=== PATIENT | male | born 1960 | race Caucasian/White ===

== ENCOUNTER 2021-05-09 18:05 | Emergency (ER) | payer OTHER ==
[2021-05-09 20:19] LABS: ALBUMIN 3.8 g/dL (3.4-5.0); BASOPHIL 0.5 % (0-2); BILIRUBIN - TOTAL 0.3 mg/dL (0.2-1.0); BUN/CREAT RATIO (CALC) 18.4 RATIO; CREATININE 1.25 mg/dL (0.67-1.17); EOSINOPHIL 0.4 % (0-5); GLOBULIN (CALCULATION) 3.8 g/dL; HCT 41.4 % (42.0-52.0); HGB 14.3 g/dl (13.2-18.0); LYMPHOCYTE 10.6 % (15-48); MCH 30.8 pg (25.0-31.0); MCHC 34.5 g/dL (32.0-36.0); MCV 89.2 fL (78.0-100.0); MONOCYTE 6.5 % (0-12); MPV 10.1 fL (6.0-9.5); NEUTROPHIL 81.6 % (41-80); NRBC 0; PLT 256 K/uL (150-400); POTASSIUM 4.7 mmol/L (3.5-5.1); RBC 4.64 M/uL (4.70-6.00); RDW 13.2 % (11.5-14.0); TOTAL PROTEIN 7.6 g/dL (6.4-8.2); WBC 8.3 K/uL (4.0-10.5)
[2021-05-09 20:37] LABS: CKMB 2.3 ng/mL (0.0-3.6)
== END 2021-05-09 21:47 | disposition home or self-care (01) ==
LOC: FER 18:05
PROVIDERS: Emergency Medicine
DX: R55 Syncope and collapse (principal); N17.9 Acute kidney failure, unspecified
CPT/HCPCS: 36415; 70450; 71045; 80053; 82550; 82553; 83874; 84484; 85025; 93005; J7030